=== PATIENT | female | born 1990 | race Caucasian/White ===

== ENCOUNTER 2021-03-31 20:41 | Emergency (ER) | payer BC ==
[~2021-03-31] VITALS: Ht 167.6 cm; Wt 115.0 kg
[~2021-03-31 20:41] MED LIST: AMITRIPTYLINE H50 MG PO; SERTRALINE HCL100 MG PO
== END 2021-03-31 22:30 | disposition home or self-care (01) ==
LOC: ED 20:41
DX: R51.9 Headache, unspecified (principal); Z79.899 Other long term (current) drug therapy
CPT/HCPCS: 96374; 96375; 99283-25; J1200; J1885; J2765; J7030